=== PATIENT | male | born 1975 | race Caucasian/White ===

== ENCOUNTER → 2020-06-23 14:44 | Outpatient (BNVA) | payer SELFPAY | PROVIDERS: Visit Provider Internal Medicine | DX: B18.2 Chronic viral hepatitis C (principal); R76.8 Other specified abnormal immunological findings in serum | CPT/HCPCS: 80053; 82105; 85025; 87522 ==

== ENCOUNTER → 2020-09-24 12:24 | Outpatient (BNVA) | payer SELFPAY | PROVIDERS: Visit Provider Internal Medicine | DX: B18.2 Chronic viral hepatitis C (principal) | CPT/HCPCS: 87522 ==

== ENCOUNTER → 2021-02-25 11:00 | Outpatient (BNVA) | payer SELFPAY | PROVIDERS: Visit Provider Internal Medicine | DX: B18.2 Chronic viral hepatitis C (principal) | CPT/HCPCS: 87522 ==